=== PATIENT | male | born 1950 | race Caucasian/White ===

== ENCOUNTER 2025-04-17 14:27 | Emergency (ER) | payer OTHER, SELFPAY ==
[2025-04-17 14:27] VITALS: BMI 36.2
[2025-04-17 14:39] VITALS: BP 160/78
[2025-04-17] MEDS: ADACEL 0.5 ML IM (16:42)
--- NOTE | 2025-04-17 20:44 | ED.MUSCINJ ---
HPI-Injury
General
Chief Complaint: Fall
Source: patient
Exam Limitations: none
Time Seen by Provider: 04/17/25 16:23
Nursing documentation reviewed up to this point in time: agreed with
History of Present Illness-Injury
Is this injury a work related problem?: No
Is pt an associate of [facility]?: No
Initial Injury comments:
Patient states he tripped over extension cord and fell. Denies hittingh is head. COmplains of bruising to left upper chest, wound to rightshin. Injury occurredjust [employer]ERT[employer]
Past History
Past History
ED Past Medical History: Arrthythmia, CAD and HTN
ED Past Surgical History: Cardiac (pacemaker)
Review of Systems
Review of Systems
Allergies reviewed?: Yes
All Other Systems: ROS reviewed and negative except as documented in HPI and ROS
Constitutional: Reports no symptoms
EENT: Reports no symptoms
Respiratory: Reports no symptoms
Cardiac: Reports no symptoms
ABD/GI: Reports no symptoms
Musculoskeletal: Reports no symptoms
Skin: Reports other (bruising to left upper chest, deep abrasion right garcia)
Neurological: Reports no symptoms
Psychiatric: Reports no symptoms
Musculoskeletal Injury Exam
Musculoskeletal Injury Exam
Left Anterior Chest:
Pain with Movement?: Mild
Tender to palpation?: Moderate
Soft tissue swelling?: Mild
External deformity and angulation?: None
Contusion?: Moderate
Hematoma-local bleeding into tissue?: Moderate
Strain- Sprain- Tear (Connective tissue injury)?: None
Crepitus with movement?: No
Joint instability?: No
Malalignment/deformity?: No
Range of motion: Full
Distal skin color and temperature: normal-warm & good color
Capillary Refill: normal
Normal distal neurovascular exam?: Yes
Skin Exam
Abrasion
Right Lower Anterior Leg:
Description of abrasion: deep/clean
Phy Exam
General Physical Exam
General Presentation: well appearing and no apparent distress
General age: appears stated age
General Skin: warm and dry
General Habitus: normal
General Mental: alert
Cardiovascular Exam
Cardiovascular Exam: regular rate/rhythm and no edema
Pulmonary Exam
Pulmonary Exam: lungs clear and no respiratory distress
Neurological Exam
Neurological Exam: alert, oriented x3, CN II-XII intact, no motor deficits, no sensory deficits and speech normal
Musculoskeletal Exam
Musculoskeletal Exam: full ROM and neuro vasc intact
Skin Exam
Skin Exam: normal color, warm/dry and no rash
Psychiatric Exam
Psychiatric Exam: normal mood/affect
Injury Course
Orders/Labs/Results
Orders:
Orders
04/17/25 14:32
EKG [Electrocardiogram (*1)] Urgent
Reason for Study: Chest Pain
04/17/25 14:33
EKG- Treatment ONCE
04/17/25 16:31
Tetanus/Diphth/Acelpertussis [Adacel] 0.5 ml IM .ONCE ONE
04/17/25 16:32
CR Chest - 2 Views Urgent
Comment:
Reason For Exam: fall, bruising left upper chest
*Radiology
Radiology exam reviewed: radiology read reviewed
*Pulse Oximetry
SaO2: 98
Oxygen Mode of Delivery: Room air
Patient hypoxic: no
*Critical Care Note
Total Time (30-74mins, 75-104mins- exclusive of procedures): Not Applicable
Update Note
Update Note:
Patient to ED after trip and fall. NO head injury. Bruising to lkeft upper chest. No rib fx noted. CXR NAD. Pacemaker/leads intact. Wouond to left leg cleansed iwth NSS. Dressing applied by RN. He is discahrged home and will follow up with PCP
ED Attending Note
-
Portions of this chart may have been created with voice recognition software.� Occasional wrong word or��sound alike� substitutions may have occurred due to the inherent limitations of voice recognition software.
Discharge Plan
Departure
Patient Disposition: Home (Routine Discharge)
Date of Disposition: 04/17/25
Time of Disposition: 17:31
Patient with high blood pressure during this ER visit?: No
Condition: Good
Covid-19: Not Applicable
Discharge Problem:
Skin tear of left lower leg without complication, Chest wall contusion
Instructions: Wound Care (DC), Contusion (DC), Preventing falls in adults
Referrals:
Andrew Mason MD [Family Provider, Internal Medicine] - Follow up in 2-3 days
Interventions
Interventions:
*Risk Screen - Suicide Last Done: 04/17/25 14:39
*General Assessment Last Done: 04/17/25 17:06
*Neglect/Abuse Screening Last Done: 04/17/25 14:39
*ED- Fall Risk Assessment Last Done: 04/17/25 17:06
*Nursing Disposition Last Done: 04/17/25 17:49
ED-Musculoskeletal Assessment Last Done: 04/17/25 17:06
ED- Neurological Assessment Last Done: 04/17/25 17:06
ED-Skin Assessment Last Done: 04/17/25 17:06
Discharge Date and Time
Discharge Date/Time: 04/17/25 17:50
Print Language: [id number]
== END 2025-04-17 17:50 | disposition home or self-care (01) ==
LOC: EMR 14:27
PROVIDERS: EMERGENCY PHYSICIAN Emergency Medicine; FAMILY PHYSICIAN Internal Medicine
DX: S81.812A Laceration without foreign body, left lower leg, initial encounter (principal); S20.212A Contusion of left front wall of thorax, initial encounter; I49.9 Cardiac arrhythmia, unspecified; I25.10 Atherosclerotic heart disease of native coronary artery without angina pectoris; I10 Essential (primary) hypertension; Z23 Encounter for immunization; Z95.0 Presence of cardiac pacemaker; W18.09XA Striking against other object with subsequent fall, initial encounter
CPT/HCPCS: 99284; 90471; 71046; 90715; 93005